=== PATIENT | female | born 1960 | race Caucasian/White ===

== ENCOUNTER 2016-07-12 22:17 | Emergency (ER) | payer OTHER ==
[~2016-07-12] VITALS: Ht 154.9 cm; Wt 106.6 kg
[~2016-07-12 22:17] MED LIST: ALBUTEROL; ALPRAZOLAM ER1 MG PO; BACTRIM,SEPT1 TABLET PO; BROMELAIN; BUMETANIDE2 MG PO; CYCLOBENZAPRINE10 MG; CYCLOBENZAPRINE5 MG PO; CYMBALTA30 MG PO; CYMBALTA60 MG PO; DELTASONE20 M1 PO; DULERA 100 MCG/13 GM IH; EPA; EXTRA STRENGTH500 M1 PO; FLONASE16 G1 BOTH NARES; FUROSEMIDE40 MG PO; GABAPENTIN100 MG PO; GABAPENTIN300 MG PO; GLUCOPHAGE XR750 MG PO; HEARTBURN RELI150 M1; HYDROCHLOROTHIA25 MG PO; IPRATROPIUM BRO30 ML BOTH NARES; K-DUR20 MEQ PO; KLONOPIN0.5 M1 PO; KLOR-CON M2020 MEQ PO; LAMICTAL200 MG PO; LAMOTRIGINE200 MG PO; LANSOPRAZOLE30 MG PO; LASIX40 MG PO; LATUDA80 MG PO; LITHIUM CARBON300 M1 PO; LITHIUM CARBON300 MG PO; LITHIUM CARBON450 MG PO; MARTEN-TAB 3251 EACH; METFORMIN HCL750 MG PO; METOPROLOL SUCC25 MG PO; MODAFINIL200 MG PO; MOTRIN800 MG PO; NABUMETONE750 MG PO; NEURONTIN300 MG PO; ODORLESS GARL1250 MG; OMEGA; OMEPRAZOLE20 MG PO; PROMETHAZINE HC25 M1; PROVENTIL,2.5 MG/3 M IH; PROVIGIL200 MG PO; RANITIDINE HCL150 M1 PO; RANITIDINE HCL150 MG; RESTASIS 01 DROP/0.4 BOTH EYES; RESTORIL15 MG PO; ROBAXIN750 MG PO; SEROQUEL XR150 MG PO; SEROQUEL100 MG PO; TEGRETOL-XR,CA200 MG PO; TOVIAZ4 MG; TOVIAZ4 MG PO; TRIAMTERENE-HC1 EAC1 PO; TYLENOL WITH C1 EACH PO; ULTRAM50 MG; ULTRAM50 MG PO; VENTOLIN HFA18 GM IH; VIT D; VITAMIN B122500 MCG PO; XANAX XR1 MG PO; XANAX1 MG PO; XANAX2 MG PO; ZANAFLEX2 M1 PO; ZANTAC300 MG PO; ZITHROMAX250 MG PO; [UNRECOGNIZED DRUG - OTHER]; [UNRECOGNIZED DRUG - OTHER]; [UNRECOGNIZED DRUG - OTHER]; [UNRECOGNIZED DRUG - OTHER]; black cohosh; calcium; coconut oil; echinacea; flax seed oil; fluticasone; ginger; magnesium; vit b complex; vit c
[2016-07-13] MEDS ORDERED: TRAMADOL HCL50 MG PO (02:02)
[2016-07-13 02:06] VITALS: BP 132/76
== END 2016-07-13 02:06 | disposition home or self-care (01) ==
LOC: EME 22:17 → RME 22:17
DX: S80.12XA Contusion of left lower leg, initial encounter (principal); X58.XXXA Exposure to other specified factors, initial encounter
CPT/HCPCS: 73590; 93971; 99281; 99283

== ENCOUNTER 2016-11-01 01:51 | Emergency (ER) | payer OTHER ==
[~2016-11-01] VITALS: Ht 154.9 cm; Wt 109.0 kg
[~2016-11-01 01:51] MED LIST changes: +TRAMADOL HCL50 MG PO
[2016-11-01 03:24] LABS: HEMATOCRIT 38.8 % (36.0-46.0); MCH 28.5 PG (29.0-34.0); MCHC 30.7 G/DL (30.0-36.0); MEAN PLAT.VOLUME 9.3 uM^3 (9.5-12.4); PLATELET COUNT 241 K/uL (156-360); RBC DIS.WIDTH-CV 15.2 % (11.8-14.6); RBC DIS.WIDTH-SD 52.5 % (39-53); RED BLOOD COUNT 4.17 M/uL (3.80-5.20); WHITE BLOOD COUNT 7.1 K/uL (4.1-10.2)
[2016-11-01 03:34] LABS: CHLORIDE 108 mEq/L (99-109); POTASSIUM 4.4 mEq/L (3.7-5.4); SODIUM 141 mEq/L (136-147)
[2016-11-01 03:36] LABS: GLUCOSE 96 mg/dL (70-99)
[2016-11-01 03:37] LABS: ANION GAP 9 MEQ/L (2-14)
[2016-11-01 03:40] LABS: GFR ESTIMATE (CALCULATED) > 59 mL/min/
[2016-11-01 03:41] LABS: UREA NITROGEN (BUN) 23 mg/dL (9-23)
[2016-11-01 04:42] LABS: ADD MIUA? NO; BILIRUBIN NEGATIVE; BLOOD NEGATIVE; COLOR STRAW ((YELLOW)); GLUCOSE (STRIP) NEGATIVE; KETONES NEGATIVE; LEUKOCYTES NEGATIVE; NITRITE NEGATIVE; PROTEIN (STRIP) NEGATIVE; SPECIFIC GRAVITY 1.012 (1.000-1.030); UCUL ADDED? NO; UROBILINOGEN 0.2 MG/DL (0.2-1.0)
[2016-11-01] MEDS ORDERED: NORCO 5/3251 TABLET PO (04:47)
[2016-11-01] MEDS ORDERED: ZOFRAN4 MG PO (04:47)
[2016-11-01 05:13] VITALS: BP 158/81
== END 2016-11-01 05:14 | disposition home or self-care (01) ==
LOC: EME 01:51
PROVIDERS: Emergency Medicine
DX: S33.5XXA Sprain of ligaments of lumbar spine, initial encounter (principal); W01.190A Fall on same level from slipping, tripping and stumbling with subsequent striking against furniture, initial encounter; Y92.511 Restaurant or cafe as the place of occurrence of the external cause; M25.552 Pain in left hip; M79.7 Fibromyalgia; F31.9 Bipolar disorder, unspecified; J45.909 Unspecified asthma, uncomplicated; K21.9 Gastro-esophageal reflux disease without esophagitis; F41.9 Anxiety disorder, unspecified; Z87.891 Personal history of nicotine dependence
CPT/HCPCS: 72192; 80048; 81003; 85027; 99281; 99284

== ENCOUNTER 2017-01-08 15:05 | Emergency (ER) | payer OTHER ==
[~2017-01-08] VITALS: Ht 154.9 cm; Wt 115.2 kg
[~2017-01-08 15:05] MED LIST changes: +NORCO 5/3251 TABLET PO; +ZOFRAN4 MG PO
[2017-01-08 16:54] LABS: HEMATOCRIT 37.7 % (36.0-46.0); MCH 29.1 PG (29.0-34.0); MCV 93.8 FL (83-99); MEAN PLAT.VOLUME 9.2 uM^3 (9.5-12.4); PLATELET COUNT 243 K/uL (156-360); RBC DIS.WIDTH-CV 13.9 % (11.8-14.6); RED BLOOD COUNT 4.02 M/uL (3.80-5.20); WHITE BLOOD COUNT 6.3 K/uL (4.1-10.2)
[2017-01-08 17:03] LABS: CHLORIDE 108 mEq/L (99-109); POTASSIUM 4.5 mEq/L (3.7-5.4); SODIUM 143 mEq/L (136-147)
[2017-01-08 17:05] LABS: GLUCOSE 98 mg/dL (70-99)
[2017-01-08 17:06] LABS: ANION GAP 8 MEQ/L (2-14)
[2017-01-08 17:07] LABS: TOTAL BILIRUBIN 0.2 mg/dL (0.0-1.0)
[2017-01-08 17:08] LABS: ALKALINE PHOSPHATASE 57 IU/L (3-129)
[2017-01-08 17:09] LABS: GFR ESTIMATE (CALCULATED) > 59 mL/min/
[2017-01-08 17:10] LABS: UREA NITROGEN (BUN) 18 mg/dL (9-23)
[2017-01-08 18:54] VITALS: BP 120/71
== END 2017-01-08 18:54 | disposition home or self-care (01) ==
LOC: EME 15:05
PROVIDERS: Emergency Medicine
DX: F31.9 Bipolar disorder, unspecified (principal); R47.81 Slurred speech; I10 Essential (primary) hypertension; J45.909 Unspecified asthma, uncomplicated; Z87.891 Personal history of nicotine dependence
CPT/HCPCS: 70450; 80053; 80178; 85027; 99281; 99282